=== PATIENT | male | born 2000 | race Caucasian/White ===

== ENCOUNTER 2024-09-03 14:09 | Emergency (ER) | payer SELFPAY ==
[~2024-09-03] VITALS: Ht 185.4 cm; Wt 93.0 kg
[2024-09-03 14:24] VITALS: BP 116/83; PULSE 72; RESP 16; TEMP 97.9; O2SAT 98
[2024-09-03] MEDS ORDERED: IBUP-2213 PO (14:43)
[2024-09-03] MEDS ORDERED: PRED20TA5 PO (14:43)
[2024-09-03] MEDS ORDERED: DIPH25TA53 PO (14:43)
[2024-09-03 14:46] VITALS: BP 115/83; PULSE 68; RESP 14; TEMP 97.9; O2SAT 99
== END 2024-09-03 14:46 | disposition home or self-care (01) ==
LOC: MED 14:09
DX: T63.441A Toxic effect of venom of bees, accidental (unintentional), initial encounter (principal); H57.11 Ocular pain, right eye; R03.0 Elevated blood-pressure reading, without diagnosis of hypertension; F12.90 Cannabis use, unspecified, uncomplicated; Y92.89 Other specified places as the place of occurrence of the external cause
CPT/HCPCS: 99283